=== PATIENT | female | born 1980 | race Caucasian/White ===

== ENCOUNTER 2016-11-17 11:10 | Outpatient (CLI) | payer MEDICAID ==
[~2016-11-17] VITALS: Ht 149.9 cm; Wt 61.1 kg
[~2016-11-17 11:10] MED LIST: PRENAT PO
[2016-11-17 12:35] VITALS: Ht 149.9 cm; Wt 61.1 kg
[2016-11-17 12:36] VITALS: BP 116/71; PULSE 71
--- NOTE | 2016-11-17 14:38 | TRIAGE ---
OB Triage Datetime Report Generated by CPN: 11/17/2016 14:38 Datetime: 11/17/2016 14:28 Labor Evaluation Frequency: 5-13 Monitor Mode: External Duration (sec)2399: 60-80 Quality: Mild Resting Tone [place]: Relaxed Heart Rate FHR Baseline Rate: 130 Monitor Mode: External US Variability: Moderate 6-25 bpm Decelerations: None Pain Assessment Pain Scale: 0 Pain Presence: None/Denies Pain Type: N/A Datetime: 11/17/2016 14:17 Stage of : OB Triage Datetime: 11/17/2016 14:09 Labor Evaluation Frequency: 13-25 Monitor Mode: External Duration (sec)2399: 70-90 Quality: Mild Resting Tone [place]: Relaxed Heart Rate FHR Baseline Rate: 130 Monitor Mode: External US Variability: Minimal - Undetectable to <=5 bpm (Annotations: MODERATE UNTIL 1358) Accelerations: 15X15 Decelerations: None Datetime: 11/17/2016 13:43 Monitor Mode: External US Datetime: 11/17/2016 13:31 Stage of : OB Triage Labor Evaluation Frequency: 14-25 (Annotations: SINCE 1134 PT HAS HAD 4 UCS) Monitor Mode: External Duration (sec)2399: 60-70 Quality: Mild Pattern: NOT AN ACTIVE LABOR PATTERN Resting Tone [place]: Relaxed Contraction Comments: SOME 15-20 SEC UTERINE IRRITABILITY NOTED Heart Rate FHR Baseline Rate: 135 Monitor Mode: External US Variability: Moderate 6-25 bpm Accelerations: 15X15 Decelerations: None Comments: ACCELS TO 145-155 FOLLOWED BY 15-20 SEC PERIODS OF FHR 120-125 NOT IN RELATION TO UCS Pain Assessment Pain Scale: 0 Pain Presence: None/Denies Pain Type: N/A Vaginal Exam Membrane Status: Intact Datetime: 11/17/2016 12:54 Pattern: Normal: <= 5 Contractions in 10 Minutes Monitor Mode: External US Comments: u/s adjusted Datetime: 11/17/2016 12:23 Stage of : OB Triage Assessment Type: Ongoing Assessment Labor Evaluation Frequency: X 2 SINCE 1134 Monitor Mode: External Duration (sec)2399: 60-70 Quality: Mild Pattern: NOT AN ACTIVE LABOR PATTERN Resting Tone [place]: Relaxed Contraction Comments: DENIES FEELING UCS Heart Rate FHR Baseline Rate: 135 Monitor Mode: External US Variability: Moderate 6-25 bpm Accelerations: 15X15 Decelerations: None Pain Assessment Pain Scale: 0 Pain Presence: None/Denies Pain Type: N/A Datetime: 11/17/2016 11:59 Stage of : OB Triage Assessment Type: Ongoing Assessment Heart Rate FHR Baseline Rate: 135 Monitor Mode: External US Variability: Moderate 6-25 bpm Decelerations: None Category: Category I Pain Assessment Pain Scale: 0 Pain Presence: None/Denies Pain Type: N/A Pain Goal: 3 Vaginal Exam Membrane Status: Intact Vaginal Bleeding: None Presentation 'A': Cephalic (Annotations: BY US TODAY) Lie 'A': Longitudinal Datetime: 11/17/2016 11:58 Assessment Type: Triage Maternal Assessment Level of Consciousness: Fully Conscious DTR's/Clonus: DTRs 2+; No Clonus Headache: Denies Blurred Vision: No Respiratory Effort: Unlabored; Regular Rhythm; Equal Expansion Breath Sounds, Left: Clear and Equal Breath Sounds, Right: Clear and Equal Nausea/Vomiting: Denies RUQ Epigastric Pain: Denies Lower Extremities Edema: None Degree: None Upper Extremities Edema: None Degree: None Facial Edema: None Fall Risk Assessment History of Falling: (0) No Secondary Diagnosis: (0) No Ambulatory Aid: (0) Bedrest/Nurse Assist IV Therapy: (0) No Gait: (0) Normal/Bedrest/Immobile Mental Status: (0) Oriented to Own Ability Fall Score: 0 Fall Risk Score Definition: No Risk: No action required Datetime: 11/17/2016 11:34 Stage of : OB Triage Time of Arrival: 11/17/2016 11:34 EGA: 39.1 Arrived By: Ambulatory Arrived From: Other Unit in Hospital Chief Complaint: PT SENT FROM NST FOR TRIAGE/CONTINUED MONITORING;PER NST RN PT HAD A LATE DECEL I N TRIAGE, DR LOCKHART REVIEWD THE STIP _ WANTED PT SENT TO [facility] FOR ADDITIONAL ASSESSMENT Movement: Present Contractions: Denies/Absent Rupture of Membranes: Denies Vaginal Bleeding: None Vaginal Discharge: Denies Recent Sexual Intercouse: Denies Abdominal Trauma: Not Applicable Patient Complaints: None Additional Patient Complaints: HX A1DM WITH THIS , DIET CONTROL (PER SUGARS ARE REASONABLY CONTROLLED). EDE 12.7CM/VERTEX/GRADE IIANTERIOR PLACENTA BY US DONE AT [facility] Time Provider Notified: 11/17/2016 13:30 Provider Notified: Vidya Initial Plan: MONITOR FHTS. FURTHER SURVIELLANCE. dr carranza cell called at 1230-mesage left to have dr calderon l/d/triage for further orders Maternal Assessment Level of Consciousness: Fully Conscious Temperature Route: Oral Labor Evaluation Frequency: PT DENIES UCS Monitor Mode: External Heart Rate FHR Baseline Rate: 132 Monitor Mode: External US Comments: PT FROM NST Pain Assessment Pain Scale: 0 Pain Presence: None/Denies Pain Type: N/A Pain Goal: 3 Vaginal Exam Membrane Status: Intact Datetime: 09/02/2016 19:04 Stage of : OB Triage Maternal Assessment Level of Consciousness: Fully Conscious DTR's/Clonus: DTRs 1+ Headache: Denies Nausea/Vomiting: Denies RUQ Epigastric Pain: Denies Labor Evaluation Frequency: NONE Monitor Mode: External Resting Tone [place]: Relaxed Heart Rate FHR Baseline Rate: 145 Monitor Mode: External US Variability: Moderate 6-25 bpm Accelerations: 10X10 Decelerations: None Pain Assessment Pain Scale: 0 Pain Presence: None/Denies Pain Type: N/A Pain Goal: 3 Vaginal Exam Membrane Status: Intact Datetime: 09/02/2016 17:59 Stage of : OB Triage Maternal Assessment Level of Consciousness: Fully Conscious DTR's/Clonus: DTRs 1+ Headache: Denies Nausea/Vomiting: Denies RUQ Epigastric Pain: Denies Labor Evaluation Frequency: NONE Monitor Mode: External Resting Tone [place]: Relaxed Heart Rate FHR Baseline Rate: 145 Monitor Mode: External US Variability: Moderate 6-25 bpm Accelerations: 10X10 Decelerations: None Pain Assessment Pain Scale: 0 Pain Presence: None/Denies Pain Type: N/A Pain Goal: 3 Vaginal Exam Membrane Status: Intact Datetime: 09/02/2016 17:05 Maternal Assessment Level of Consciousness: Fully Conscious DTR's/Clonus: DTRs 1+ Headache: Denies Blurred Vision: No Nausea/Vomiting: Denies RUQ Epigastric Pain: Denies Facial Edema: None Labor Evaluation Frequency: NONE Monitor Mode: External Resting Tone [place]: Relaxed Heart Rate FHR Baseline Rate: 145 Monitor Mode: External US Variability: Moderate 6-25 bpm Accelerations: 10X10 Decelerations: None Category: Category I Pain Assessment Pain Scale: 0 Pain Presence: None/Denies Pain Type: N/A Pain Goal: 3 Vaginal Exam Membrane Status: Intact Datetime: 09/02/2016 16:46 Stage of : OB Triage Maternal Assessment Level of Consciousness: Fully Conscious DTR's/Clonus: DTRs 2+; No Clonus Headache: Denies Blurred Vision: No Respiratory Effort: Unlabored; Regular Rhythm; Equal Expansion Breath Sounds, Left: Clear and Equal Breath Sounds, Right: Clear and Equal Nausea/Vomiting: Denies RUQ Epigastric Pain: Denies Lower Extremities Edema: None Degree: None Upper Extremities Edema: None Degree: None Facial Edema: None Temperature Route: Axillary Fall Risk Assessment History of Falling: (0) No Secondary Diagnosis: (0) No Ambulatory Aid: (0) Bedrest/Nurse Assist IV Therapy: (0) No Gait: (0) Normal/Bedrest/Immobile Mental Status: (0) Oriented to Own Ability Fall Score: 0 Fall Risk Score Definition: No Risk: No action required Datetime: 09/02/2016 16:45 EGA: 28.2 Datetime: 09/02/2016 16:36 Time of Arrival: 09/02/2016 16:36 Arrived By: Ambulatory Arrived From: Office Chief Complaint: PT CAME IN C/O PELVIC PRESSURE SINCE THIS AFTERNOON Movement: Present Contractions: Denies/Absent Rupture of Membranes: Denies Vaginal Discharge: Denies Recent Sexual Intercouse: Denies Abdominal Trauma: Not Applicable Patient Complaints: Other Additional Patient Complaints: NONE Time Provider Notified: 09/02/2016 17:00 Provider Notified: VIDYA Initial Plan: MONITOR AND UA
--- NOTE | 2016-11-17 15:14 | PN ---
DATE: 11/17/2016 The patient is a 36-year-old A1 GDM at 39 weeks. The patient was admitted for Dr. Tomasz claudio for induction. The patient ordered repeated ____. The risks and benefits discussed with the inte rpreter with Dr. Quintana and Dr. Hilliard. The patient to come back tomorrow for repeated ____. Dictated By: TWIN MORENO MD /DIANNA Conf#: [id number] DID#: [id number]
== END 2016-11-17 14:58 | disposition left against medical advice (07) ==
LOC: OBT 11:10 → L-D 11:10 → OBT 11:40 → UNDOADMIN 11:41 → L-D 11:41 → OBT 14:58
PROVIDERS: ATTEND Obstetrics & Gynecology
DX: O24.410 Gestational diabetes mellitus in pregnancy, diet controlled (principal); Z3A.39 39 weeks gestation of pregnancy
CPT/HCPCS: G0463

== ENCOUNTER 2016-11-26 00:25 | Outpatient (CLI) | payer MEDICAID ==
[~2016-11-26] VITALS: Ht 144.8 cm; Wt 61.1 kg
--- NOTE | 2016-11-26 00:27 | NSTRPT ---
NST Information Datetime Report Generated by CPN: 11/26/2016 00:27 Datetime: 11/17/2016 08:40 NST Information EGA: 39.1 Test Number: 7 Time on Monitor: 11/17/2016 07:57 Time off Monitor: 11/17/2016 10:34 NST Duration (Min): 157 Reason for NST: Diabetes Mellitus; Other Reason for NST Other: A1DM Test and Monitor Explained: Monitor Explained; Test Explained; Verbalized Understanding Pulse: 66 Resp: 18 SBP: 102 DBP: 59 Test Evaluation NST Interventions: Reposition Patient Patient States Movement: Present Contraction Frequency: OCCASIONAL FHR Baseline : 130 Variability: Moderate 6-25bpm Accelerations: 15X15 Decelerations: Late FHR Category: Category II NST Results: Questionable Comments: To u/s, EDE 12.7, Cephalic 1030-Dr Rizvi reviewed NST, recommends delivery. 1039-Report to Dr Quintana, order to send pt to [facility] for eval. POC explained to pt, pt states wants talk to and is unsure. Explaination of l ate decel to pt will go to hosp after discussion with spouse. 1050-Pt to triage, accomp by Laina Child nU/S, follow up NST for 11/20 given. Electronically Signed By E-Signature: with User ID: [id number] Datetime: 11/05/2016 14:03 NST Information EGA: 37.3 NST Duration (Min): 28 Datetime: 10/31/2016 08:45 NST Information EGA: 36.5 NST Duration (Min): 31 Datetime: 10/24/2016 09:02 NST Information EGA: 35.5 NST Duration (Min): 20 Datetime: 10/16/2016 08:51 NST Information EGA: 34.4 NST Duration (Min): 38 Datetime: 10/06/2016 10:10 NST Information EGA: 33.1 NST Duration (Min): 28 Datetime: 09/29/2016 09:41 NST Information EGA: 32.1 NST Duration (Min): 20
[2016-11-26 00:42] VITALS: Ht 144.8 cm; Wt 61.1 kg
[2016-11-26 00:43] VITALS: BP 142/68; PULSE 68; RESP 18
--- NOTE | 2016-11-26 02:30 | HP ---
Date/Time of Note Date/Time of Note DATE: 11/26/16 TIME: 02:26 OB - History Hx of Present Free Text/Dictation OB Triage Pt is a 36yo at 40+3 with GDMA1 presenting with c/o painful UCs since 1720 yesterday evening approximately [id number]. Pt states now UCs have become less painful. Reports normal FM, denies LOF, VB, headache, visual changes or RUQ pain. PROCEDURE: Ultrasound . CLINICAL INDICATION: . Contractions. TECHNIQUE: Ultrasound examination (see for evaluation of biophysical profile score. COMPARISON: Ultrasound examination of dated 11/17/2016. FINDINGS: breathing is appropriate for a score of 2; motion is appropriate for a score of 2; tone is appropriate for a score of 2; and amniotic fluid index is appropriate for a score of 2. Biophysical profile of 04/14. EDE is 7.1 cm. Heart rate is detected at 140 2 beats per minute. presentation is cephalic. Placenta is anterior grade 2 or grade 3. IMPRESSION: Biophysical profile score of 04/14. Estimated Due Date: Nov 23, 2016 : 3 Para: 2 Obstetrical Complications: Gestational Diabetes (A1) Past Family/Social History * Past Medical, Surgical, Family and Obstetric Histories reviewed from chart. Blood Type: O+ Rubella: immune RPR/VDRL: Negative GBS Status: Negative HBsAG: Negative OB Admission Exam Vital Signs Vital Signs Vital Signs Date Time Temp Pulse Resp B/P Pulse Ox O2 Delivery O2 Flow Rate FiO2 11/26/16 00:43 98.0 68 18 142/68 BPs 128/63, 136/65, 112/65, 134/77 Physical Exam Cervical Dilatation: 3cm Effacement: 50% Station: -2 Membranes: Intact Heart Rate: 140's Accelerations: Accelerations Present Decelerations: No Decelerations Varibility: Moderate Contractions on Admission: 6-10 Minutes Apart OB Assessment/Plan Other Assessment: Early labor at term GDMA1 Low normal EDE Other plan: IOL recommended given GA >40+0 with low normal EDE and GDMA1, however pt declines in favor of awaiting spontaneous labor. NST reactive, BPP wnl. Has appointment this AM at 10:30 with primary OB, Dr. Quintana. Pt advised to keep OB appointment. Recommended pt return to OB triage after clinic appointment for repeat NST/EDE if unwilling to stay for induction at that time. Advised PO hydration in the meantime. Strict FKC, Labor and ROM precautions reviewed. Questions answered to patient and her 's satisfaction. ANUPAMA CLOUD MD Nov 26, 2016 02:30
--- NOTE | 2016-11-26 02:44 | RADRPT ---
PROCEDURE: Ultrasound . CLINICAL INDICATION: . Contractions. TECHNIQUE: Ultrasound examination (see for evaluation of biophysical profile score. COMPARISON: Ultrasound examination of dated 11/17/2016. FINDINGS: breathing is appropriate for a score of 2; motion is appropriate for a score of 2; tone is appropriate for a score of 2; and amniotic fluid index is appropriate for a score of 2. Bi ophysical profile of 04/14. EDE is 7.1 cm. Heart rate is detected at 140 2 beats per minute. presentation is cephalic. Placenta is ante rior grade 2 or grade 3. IMPRESSION: Biophysical profile score of 04/14. RPTAT: [facility]U Physician Elina Date Time Electronically viewed and signed by Physician Elina on 11/26/2016 02:44 RS/
--- NOTE | 2016-11-26 03:57 | TRIAGE ---
OB Triage Datetime Report Generated by CPN: 11/26/2016 03:57 Datetime: 11/26/2016 03:30 Stage of : OB Triage Datetime: 11/26/2016 02:10 Stage of : OB Triage Labor Evaluation Frequency: 3-9 Monitor Mode: External Duration (sec)2399: 60-160 Quality: Mild Pattern: Normal: <= 5 Contractions in 10 Minutes Resting Tone [place]: Relaxed Heart Rate FHR Baseline Rate: 135 Monitor Mode: External US Variability: Moderate 6-25 bpm Accelerations: 15X15 Decelerations: None Category: Category I Pain Presence: None/Denies Datetime: 11/26/2016 01:15 Stage of : OB Triage Temperature Route: Oral Labor Evaluation Frequency: 7-9 Monitor Mode: External Duration (sec)2399: 90-130 Quality: Mild Pattern: Normal: <= 5 Contractions in 10 Minutes Resting Tone [place]: Relaxed Heart Rate FHR Baseline Rate: 130 Monitor Mode: External US Variability: Moderate 6-25 bpm Accelerations: 15X15 Decelerations: None Category: Category I Pain Assessment Pain Scale: 5 Pain Presence: Intermittent Pain Type: Cramping Pain Location: Abdomen Pain Relief Measures: Comfort Measures Datetime: 11/26/2016 01:05 Vaginal Exam Dilatation (cms): 3.0 Effacement (%): 50 Station: -2 Exam By: AMILCAR Vaginal Bleeding: None Cervix, Consistency: Moderate Cervix, Position: Posterior Datetime: 11/26/2016 00:48 Assessment Type: Triage Maternal Assessment Level of Consciousness: Fully Conscious DTR's/Clonus: DTRs 2+; No Clonus Headache: Denies Blurred Vision: No Respiratory Effort: Unlabored; Regular Rhythm; Equal Expansion Breath Sounds, Left: Clear and Equal Breath Sounds, Right: Clear and Equal Nausea/Vomiting: Denies RUQ Epigastric Pain: Denies Lower Extremities Edema: None Upper Extremities Edema: None Facial Edema: None Fall Risk Assessment History of Falling: (0) No Secondary Diagnosis: (0) No Ambulatory Aid: (0) Bedrest/Nurse Assist IV Therapy: (0) No Gait: (0) Normal/Bedrest/Immobile Mental Status: (0) Oriented to Own Ability Fall Score: 0 Fall Risk Score Definition: No Risk: No action required Datetime: 11/26/2016 00:47 Time of Arrival: 11/26/2016 00:20 EGA: 40.3 Arrived By: Ambulatory Arrived From: Home Chief Complaint: CONTRACTIONS SINCE 1700 Movement: Present Contractions: Irregular Time Contractions Began: 11/25/2016 17:00 Contractions: Q 20-25 MIN Rupture of Membranes: Denies Vaginal Bleeding: None Vaginal Discharge: Denies Patient Complaints: None Time Provider Notified: 11/26/2016 01:35 Provider Notified: PEDRO LUIS Initial Plan: EFM, ASSESSMENT, CALL MD FOR ORDERS Datetime: 11/17/2016 11:58 Fall Score: 0 Fall Risk Score Definition: No Risk: No action required Datetime: 11/17/2016 11:34 EGA: 39.1 Additional Patient Complaints: HX A1DM WITH THIS , DIET CONTROL (PER SUGARS ARE REASONABLY CONTROLLED). EDE 12.7CM/VERTEX/GRADE II ANTERIOR PLACENTA BY US DONE AT [facility] Datetime: 09/02/2016 16:46 Fall Score: 0 Fall Risk Score Definition: No Risk: No action required Datetime: 09/02/2016 16:45 EGA: 28.2
[2016-11-27] MEDS ORDERED: IBUP-1542 PO (14:44)
== END 2016-11-26 03:33 | disposition home or self-care (01) ==
LOC: L-D 00:25 → OBT 00:25
PROVIDERS: ATTEND Obstetrics & Gynecology
DX: O62.8 Other abnormalities of forces of labor (principal); O24.419 Gestational diabetes mellitus in pregnancy, unspecified control; O09.523 Supervision of elderly multigravida, third trimester; Z3A.36 36 weeks gestation of pregnancy
CPT/HCPCS: 76818; 82962; G0463

== ENCOUNTER 2016-11-26 07:36 | Inpatient (IN) | payer MEDICAID ==
[~2016-11-26] VITALS: Ht 142.2 cm; Wt 60.3 kg
--- NOTE | 2016-11-26 08:11 | TRIAGE ---
OB Triage Datetime Report Generated by CPN: 11/26/2016 08:11 Datetime: 11/26/2016 08:09 Time of Arrival: 11/26/2016 07:30 EGA: 40.3 Arrived By: Ambulatory Arrived From: Home Chief Complaint: R/O SROM Movement: Present Rupture of Membranes: Unsure Vaginal Bleeding: None Vaginal Discharge: Denies Recent Sexual Intercouse: Denies Abdominal Trauma: Not Applicable Time Provider Notified: 11/26/2016 08:00 Provider Notified: DR. CLOUD Initial Plan: SVE, ROM PLUS Datetime: 11/26/2016 08:02 Dilatation (cms): 4.5
[2016-11-26 08:36] VITALS: Ht 142.2 cm; Wt 60.3 kg
[2016-11-26 08:38] VITALS: BP 124/72; PULSE 78; RESP 20
[2016-11-26] MEDS ORDERED: MISOPROSTOL 200 MCG TAB PR PRN ×2 (09:00→21:30)
[2016-11-26] MEDS ORDERED: LACTATED RINGER'S 1,000 ML IV PRN (09:00)
[2016-11-26] MEDS ORDERED: METHYLERGONOVINE 0.2 MG INJ IM PRN ×2 (09:00→21:30)
[2016-11-26] MEDS ORDERED: BUTORPHANOL 2 MG INJ IV PRN ×2 (09:00)
[2016-11-26] MEDS ORDERED: LIDOCAINE 1% (MPF) 30 ML INJ INJ PRN (09:00)
[2016-11-26] MEDS ORDERED: IBUPROFEN 600 MG TAB PO PRN (09:00)
[2016-11-26] MEDS ORDERED: OXYTOCIN 30 UNITS/LR 500 ML IV SCH ×2 (09:00→10:30)
[2016-11-26] MEDS ORDERED: ACETAMINOPHEN/CODEINE #3 TAB PO PRN ×3 (09:00→21:30)
[2016-11-26] MEDS ORDERED: CARBOPROST 250 MCG INJ IM PRN ×2 (09:00→21:30)
[2016-11-26] MEDS ORDERED: OXYTOCIN 30 UNITS/LR 500 ML IV PRN ×2 (09:00→21:30)
[2016-11-26] MEDS: LACTATED RINGER'S 1,000 ML IV SCH ×2 (09:20→16:11)
[2016-11-26 09:34] LABS: ADD SCAN DIFF NO
[2016-11-26 09:38] LABS: BASOPHILS % 0.3 % (0.0-2.0); EOSINOPHILS % 0.4 % (0.0-7.0); HEMATOCRIT 33.9 % (37.0-47.0); HEMOGLOBIN 11.4 g/dl (12.0-16.0); LYMPHOCYTES # 1.2 10^3/ul (0.8-2.9); LYMPHOCYTES % 16.9 % (15.0-51.0); MEAN CORPUSCULAR HEMOGLOBIN 28.6 pg (29.0-33.0); MEAN CORPUSCULAR HGB CONC 33.6 g/dl (32.0-37.0); MONOCYTE # 0.5 10^3/ul (0.3-0.9); MONOCYTES % 6.9 % (0.0-11.0); NEUTROPHIL # 5.1 10^3/ul (1.6-7.5); NEUTROPHILS % 74.6 % (39.0-77.0); PLATELET COUNT 260 10^3/UL (140-415); RED BLOOD COUNT 3.99 10^6/ul (4.20-5.40); RED CELL DISTRIBUTION WIDTH 13.9 % (11.5-14.5); WHITE BLOOD COUNT 6.8 10^3/ul (4.8-10.8)
[2016-11-26 09:50] LABS: INR 0.87; PARTIAL THROMBOPLASTIN TIME 25.2 Sec (25.0-35.0); PROTIME 11.8 Sec (12.2-14.2); PT RATIO 0.9
[2016-11-26] MEDS ORDERED: MINERAL OIL LIGHT 10 ML VIAL TOP ONE (14:30)
[2016-11-26] MEDS: OXYTOCIN 30 UNITS/LR 500 ML IV SCH ×2 (18:54→22:47)
--- NOTE | 2016-11-26 19:21 | HP ---
Date/Time of Note Date/Time of Note DATE: 11/26/16 TIME: 19:15 OB - History Hx of Present Free Text/Dictation admitted in labor at 40 weeks Last Menstrual Period: Feb 23, 2016 Estimated Due Date: Nov 23, 2016 : 3 Para: 2 Care: Good Care Ultrasounds: Normal mid trimester US Obstetrical Complications: Gestational Diabetes Past Family/Social History * Past Medical, Surgical, Family and Obstetric Histories reviewed from chart. Blood Type: O+ Rubella: immune RPR/VDRL: Negative GBS Status: Positive HBsAG: Negative OB Admission Exam Vital Signs Vital Signs Vital Signs Date Time Temp Pulse Resp B/P Pulse Ox O2 Delivery O2 Flow Rate FiO2 11/26/16 08:38 99.6 78 20 124/72 Room Air Physical Exam HEENT: WNL Heart: Rhythm Normal Lungs: Clear, Equal Abdomen: WNL Extremities: Normal Reflexes: Normal Cervical Dilatation: 4cm Effacement: 50% Station: -3 Membranes: Intact Heart Rate: 130's Accelerations: Accelerations Present Decelerations: No Decelerations Varibility: Marked Contractions on Admission: < 5 Minutes Apart Date/Time Contractions Began: 11/25/2016 Frequency of Contractions: q 4 Duration: >30 seconds Intensity: Mild Last 72 hourBlood Glucose Bedside Glucose - 72 Hours Test 11/26/16 10:55 11/26/16 13:04 11/26/16 15:21 Bedside Glucose 78mg/dL (70-220) 89mg/dL (70-220) 81mg/dL (70-220) Last 72 hours Lab Results CBC & BMP 11/26/16 09:15 OB Assessment/Plan Other Assessment: term gestation labor pains GDM Other plan: proceed with labor TAMIKO ELIAS MD Nov 26, 2016 19:21
--- NOTE | 2016-11-26 19:24 | LDN ---
Date/Time of Note Date/Time of Note DATE: 11/26/16 TIME: 19:21 Delivery Summary of a viable infant over intact perineum Weeks of Gestation 40 + weeks Placenta Delivered: Spontaneously, Intact & Complete Meconium: none Episiotomy: No Perineal laceration: 1 Laceration repair: superficial perineal laceration was repaired with 2 0 Chromic Anesthesia type: Local Estimated blood loss: 300 Sponge & Needle done & correct: Yes All needle counts correct: Yes Any foreign bodies felt in the: No Problems: Infant Delivery Information Sex Infant Sex: female Apgars 1 Minute: 9 5 Minute: 9 Suctioning Nose & mouth suctioned at chidi: Yes Delee suction performed: No Umbilical Cord Umbilical cord with: 3 Vessels Cord presentations: nuchal cord Nuchal cord present X: 1 Cord Blood was obtained: Yes Mother & Baby Disposition Disposition Mom & Baby to Maternity; Good: Yes (mother and baby were recovered in good condition ) Mom transferred to: Other (maternity ) Baby to NICU: No TAMIKO ELIAS MD Nov 26, 2016 19:24
[2016-11-26] MEDS: LACTATED RINGER'S 1,000 ML IV* SCH (21:10)
[2016-11-26] MEDS ORDERED: LANOLIN 7 GM TUBE TOP PRN (21:30)
[2016-11-26] MEDS ORDERED: ZOLPIDEM 5 MG TAB PO PRN (21:30)
[2016-11-26] MEDS ORDERED: DIBUCAINE 1% 30 GM OINT PR PRN (21:30)
[2016-11-26 21:40] VITALS: BP 141/70; PULSE 57; RESP 19
[2016-11-26 23:30] VITALS: BP 108/55; PULSE 62; RESP 18
[2016-11-26] MEDS: BENZOCAINE 20% 56 ML SPRAY TOP PRN (23:45)
[2016-11-26] MEDS: WITCH HAZEL/GLYCERIN PAD PR PRN (23:46)
[2016-11-26] MEDS: IBUPROFEN 600 MG TAB PO SCH (23:47)
[2016-11-27 04:15] VITALS: BP 116/56; PULSE 58; RESP 18
[2016-11-27] MEDS: LACTATED RINGER'S 1,000 ML IV* SCH (05:10)
[2016-11-27] MEDS: IBUPROFEN 600 MG TAB PO SCH ×3 (05:37→17:29)
[2016-11-27] MEDS: ACCU-CHEK XX SCH ×4 (07:30→20:05)
--- NOTE | 2016-11-27 07:44 | RADRPT ---
PROCEDURE: XR Chest. CLINICAL INDICATION: Positive PPD TECHNIQUE: PA and lateral views of the chest were obtained. COMPARISON: None. FINDINGS: No focal airspace opacification, pleural effusion or pneumothorax is seen. The cardiomediastinal si lhouette is within normal limits for size. The osseous structures are unremarkable. IMPRESSION: No radiographic evidence of acute cardiopulmonary disease. RPTAT: HH .Ashlyn Martinez MD, MD Date Time Electronically viewed and signed by .Ashlyn Martinez MD, on 11/27/2016 07:44 .G/
[2016-11-27 08:12] LABS: ADD SCAN DIFF NO
[2016-11-27 08:19] LABS: BASOPHILS % 0.2 % (0.0-2.0); EOSINOPHILS % 0.3 % (0.0-7.0); HEMATOCRIT 31.6 % (37.0-47.0); HEMOGLOBIN 10.4 g/dl (12.0-16.0); LYMPHOCYTES # 1.4 10^3/ul (0.8-2.9); LYMPHOCYTES % 11.6 % (15.0-51.0); MEAN CORPUSCULAR HGB CONC 32.9 g/dl (32.0-37.0); MEAN CORPUSCULAR VOLUME 85.2 fl (82.0-101.0); MEAN PLATELET VOLUME 9.2 fl (7.4-10.4); MONOCYTE # 0.8 10^3/ul (0.3-0.9); MONOCYTES % 6.7 % (0.0-11.0); NEUTROPHIL # 9.9 10^3/ul (1.6-7.5); NEUTROPHILS % 80.6 % (39.0-77.0); PLATELET COUNT 221 10^3/UL (140-415); RED BLOOD COUNT 3.71 10^6/ul (4.20-5.40); RED CELL DISTRIBUTION WIDTH 13.9 % (11.5-14.5); WHITE BLOOD COUNT 12.3 10^3/ul (4.8-10.8)
[2016-11-27 08:40] VITALS: BP 99/51; PULSE 60; RESP 17
[2016-11-27] MEDS: SENNA/DOCUSATE NA (8.6MG/50MG) TAB PO SCH ×2 (09:52→20:54)
[2016-11-27] MEDS: MAGNESIUM HYDROXIDE 30ML CUP PO SCH ×2 (09:52→20:54)
--- NOTE | 2016-11-27 13:34 | DS ---
Date/Time of Note Date/Time of Note home next day DATE: 11/27/16 TIME: 13:33 Obstetrical Discharge Record Final Diagnosis Final Diagnosis: Term delivered Other Final Diagnosis S/P vaginal delivery Vaginal Delivery Obstetrical Delivery: Spontaneous, Laceration, Repaired Complications Gestational Diabetes Augmentation: Yes Induction: No Condition on Discharge Physical Assessment Last Vitals: see nurses notes Voiding: Yes Bowel Movement: Yes Breast: Soft, non-tender, Filling Fundus: Firm Abdomen and Incision: soft bs + Episiotomy: NA Calf Tenderness: No Patient Condition: Good TAMIKO ELIAS MD Nov 27, 2016 13:34
[2016-11-27] MEDS ORDERED: IBUP-1542 PO (14:44)
--- NOTE | 2016-11-27 14:44 | PD.PPDC ---
[employer] Discharge Instruction Provider Information Physician Information 36 y/o female had vaginal delivery Diagnosis Final Diagnosis: S/P vaginal delivery Condition Patient Condition: Good Diet Diet: Special Diet Special Diet: 200 florin ADA Activity/Restrictions Activity: Normal Activity May Shower Restrictions: Nothing in the Vagina Return to Work or School: January 12, 2017 Follow-up Follow-up with Physician: 4, Week/Weeks (in clinic) Return to clinic for OB Instructions: Breast Tenderness Depression TAMIKO ELIAS MD Nov 27, 2016 14:43
[2016-11-27 16:07] VITALS: BP 108/55; PULSE 60; RESP 18
[2016-11-27] MEDS ORDERED: INFLUENZA VIRUS VACCINE 0.5 ML (DISPENSING) IM* ONE (18:00)
[2016-11-27 19:30] VITALS: BP 115/65; PULSE 75; RESP 20
[2016-11-28] MEDS: IBUPROFEN 600 MG TAB PO SCH ×3 (00:08→11:19)
[2016-11-28 03:38] VITALS: BP 110/54; PULSE 72; RESP 20
[2016-11-28] MEDS: ACCU-CHEK XX SCH ×2 (07:30→10:05)
[2016-11-28 07:39] LABS: ADD SCAN DIFF NO
[2016-11-28 07:46] LABS: BASOPHILS % 0.4 % (0.0-2.0); EOSINOPHILS # 0.2 10^3/ul (0.0-0.5); EOSINOPHILS % 1.7 % (0.0-7.0); HEMATOCRIT 31.7 % (37.0-47.0); HEMOGLOBIN 10.2 g/dl (12.0-16.0); LYMPHOCYTES # 1.7 10^3/ul (0.8-2.9); LYMPHOCYTES % 18.5 % (15.0-51.0); MEAN CORPUSCULAR HEMOGLOBIN 27.9 pg (29.0-33.0); MEAN CORPUSCULAR HGB CONC 32.2 g/dl (32.0-37.0); MEAN CORPUSCULAR VOLUME 86.6 fl (82.0-101.0); MEAN PLATELET VOLUME 9.5 fl (7.4-10.4); MONOCYTE # 0.5 10^3/ul (0.3-0.9); MONOCYTES % 5.6 % (0.0-11.0); NEUTROPHIL # 6.6 10^3/ul (1.6-7.5); NEUTROPHILS % 73.1 % (39.0-77.0); PLATELET COUNT 230 10^3/UL (140-415); RED BLOOD COUNT 3.66 10^6/ul (4.20-5.40); RED CELL DISTRIBUTION WIDTH 14.3 % (11.5-14.5)
[2016-11-28 07:50] VITALS: BP 111/59; PULSE 61; RESP 16
[2016-11-28] MEDS: SENNA/DOCUSATE NA (8.6MG/50MG) TAB PO SCH (08:51)
[2016-11-28] MEDS: MAGNESIUM HYDROXIDE 30ML CUP PO SCH (08:51)
[2016-11-28] MEDS: WITCH HAZEL/GLYCERIN PAD PR PRN (08:58)
[2016-11-28] MEDS: BENZOCAINE 20% 56 ML SPRAY TOP PRN (08:58)
[2016-11-28] MEDS ORDERED: VARICELLA VACCINE LIVE/PF 1,350 UNIT/0.5 ML ML SC* ONE (09:00)
[2016-11-28] MEDS ORDERED: MEASLES,MUMPS,RUBELLA VACCINE INJ SC* ONE (09:00)
[2016-11-28] MEDS ORDERED: DIPHTH/TET/ACEL PERTUSS (ADULT) 0.5 ML VIAL IM* ONE (09:00)
[2016-11-29] MEDS ORDERED: INFLUENZA VIRUS VACCINE 0.5 ML (DISPENSING) IM* ONE (09:00)
== END 2016-11-28 12:40 | disposition home or self-care (01) | DRG 775 ==
LOC: OBT 07:36 → L-D 07:37 → OBT 08:30 → L-D 08:32 → PP1 21:38
PROVIDERS: ADMIT Obstetrics & Gynecology; ATTEND Obstetrics & Gynecology
PROC: 10E0XZZ Delivery of Products of Conception, External Approach (ICD-10-PCS; principal; 2016-11-26)
PROC: 0HQ9XZZ Repair Perineum Skin, External Approach (ICD-10-PCS; 2016-11-26)
DX: O70.0 First degree perineal laceration during delivery (principal); O24.429 Gestational diabetes mellitus in childbirth, unspecified control; O48.0 Post-term pregnancy; O69.81X0 Labor and delivery complicated by cord around neck, without compression, not applicable or unspecified; Z3A.40 40 weeks gestation of pregnancy; Z37.0 Single live birth
CPT/HCPCS: 71020; 76818; 82962; 84112; 85025; 85610; 85730; 86592; 86900; 86901; 90686; 90715; 90716; G0463; J2590; J7120

== ENCOUNTER 2018-09-24 17:22 | Outpatient (CLI) | payer MEDICAID ==
[~2018-09-24] VITALS: Ht 139.7 cm; Wt 57.7 kg
[~2018-09-24 17:22] MED LIST changes: +IBUP-1542 PO
[2018-09-24 18:18] VITALS: BP 130/74; PULSE 67; RESP 20; Ht 139.7 cm; Wt 57.7 kg
--- NOTE | 2018-09-24 22:39 | TRIAGE ---
OB Triage Datetime Report Generated by CPN: 09/24/2018 22:39 Datetime: 09/24/2018 21:53 Comments: monitor off, pt changing out of hospital gown into own clothes to be discharged home Datetime: 09/24/2018 21:52 Labor Evaluation Frequency: 5-8 Monitor Mode: External Duration (sec)2399: 80-100 Quality: Mild Pattern: Normal: <= 5 Contractions in 10 Minutes Resting Tone [place]: Relaxed Heart Rate FHR Baseline Rate: 145 Monitor Mode: External US Variability: Moderate 6-25 bpm Accelerations: 15X15 Decelerations: None Category: Category I Datetime: 09/24/2018 21:47 Vaginal Exam Dilatation (cms): 1.0 Effacement (%): 50 Station: -2 Exam By: AMALIA RN Datetime: 09/24/2018 21:31 Pain Assessment Pain Scale: 5 Pain Presence: Intermittent Pain Type: Contraction Pain Location: Abdomen Pain Relief Measures: Comfort Measures Pain Assessment Comments: pt states pain just increased very slightly but still tolerable and decli ne need for medication Datetime: 09/24/2018 21:29 Monitor Mode: External Monitor Mode: External US Datetime: 09/24/2018 20:25 Comments: monitors off, pt ambulating hallway on unit. Datetime: 09/24/2018 20:24 Comments: maternal movement, monitor loss of contact Datetime: 09/24/2018 20:23 Labor Evaluation Frequency: 4-10 Monitor Mode: External Duration (sec)2399: 50-110 Quality: Mild Pattern: Normal: <= 5 Contractions in 10 Minutes Resting Tone [place]: Relaxed Heart Rate FHR Baseline Rate: 140 Monitor Mode: External US Variability: Moderate 6-25 bpm Accelerations: 15X15 Decelerations: None Category: Category I Pain Assessment Pain Scale: 4 Pain Presence: Intermittent Pain Type: Contraction Pain Location: Abdomen Pain Relief Measures: Comfort Measures Datetime: 09/24/2018 19:55 Comments: monitors off, refractory technician at bedside for ultrasound results Datetime: 09/24/2018 19:54 Bedside Blood Glucose: 93 Datetime: 09/24/2018 19:41 Labor Evaluation Frequency: 5-10 Monitor Mode: External Duration (sec)2399: 60-100 Quality: Mild Pattern: Normal: <= 5 Contractions in 10 Minutes Resting Tone [place]: Relaxed Heart Rate FHR Baseline Rate: 140 Monitor Mode: External US Variability: Moderate 6-25 bpm Accelerations: 15X15 Decelerations: None Category: Category I Pain Assessment Pain Scale: 4 Pain Presence: Intermittent Pain Type: Contraction Pain Location: Abdomen Pain Relief Measures: Comfort Measures Datetime: 09/24/2018 19:21 Vaginal Exam Dilatation (cms): 1.0 Effacement (%): 50 Station: -2 Membrane Status: Intact Vaginal Bleeding: Normal Show Cervix, Consistency: Moderate Cervix, Position: Midposition Presentation 'A': Cephalic Datetime: 09/24/2018 19:19 Pain Assessment Pain Scale: 4 Pain Presence: Intermittent Pain Type: Contraction Pain Location: Abdomen Pain Relief Measures: Comfort Measures Datetime: 09/24/2018 18:40 Labor Evaluation Frequency: 6-7 Monitor Mode: External Duration (sec)2399: 60-90 Quality: Strong Pattern: Normal: <= 5 Contractions in 10 Minutes Resting Tone [place]: Relaxed Heart Rate FHR Baseline Rate: 140 Monitor Mode: External US FHR Baseline Changes: No Baseline Change Variability: Moderate 6-25 bpm Accelerations: 15X15 Decelerations: None Category: Category I Pain Assessment Pain Scale: 4 Pain Presence: Intermittent Pain Type: Contraction Pain Location: Abdomen; Back Pain Goal: 2 Datetime: 09/24/2018 18:09 Stage of : OB Triage Assessment Type: Triage Time of Arrival: 09/24/2018 17:18 EGA: 37.3 Arrived By: Wheelchair Arrived From: Home Chief Complaint: UC'S since around 0500 Movement: Present Contractions: Irregular Time Contractions Began: 09/24/2018 05:00 Rupture of Membranes: Denies Vaginal Bleeding: Normal Show Vaginal Discharge: Present Recent Sexual Intercouse: Denies Abdominal Trauma: Not Applicable Patient Complaints: Contractions Time Provider Notified: 09/24/2018 19:42 Provider Notified: Initial Plan: EFM, VS, SVE; BPP w/EDE, EFW; ambulate Maternal Assessment Level of Consciousness: Fully Conscious DTR's/Clonus: DTRs 2+; No Clonus Headache: Denies Blurred Vision: No Respiratory Effort: Unlabored; Regular Rhythm; Equal Expansion Nausea/Vomiting: Denies RUQ Epigastric Pain: Denies Lower Extremities Edema: None Degree: None Upper Extremities Edema: None Degree: None Facial Edema: None Temperature Route: Axillary Fall Risk Assessment History of Falling: (0) No Secondary Diagnosis: (0) No Ambulatory Aid: (0) Bedrest/Nurse Assist IV Therapy: (0) No Gait: (0) Normal/Bedrest/Immobile Mental Status: (0) Oriented to Own Ability Fall Score: 0 Fall Risk Score Definition: No Risk: No action required Datetime: 09/16/2018 09:35 Membrane Status: Intact
--- NOTE | 2018-09-25 02:18 | PN ---
Triage Information Date/Time 09/24/2018 at 2200 Reason for visit: Abd/pelvic pain Weeks of Gestation 37 weeks and 3 days /Para Diabetes: gestational Diabetes management: diet controlled Hypertention: none Additional information 38 years old at 37 weeks and 3 days with a ROSALINA of 10/11/2018 complaining o f uterine contractions. She states good movement. She denies nausea, vomiting, shortness of breath, chest pain, headache, visual changes, vaginal bleeding or LOF. Objective Vital Signs Date Temp Pulse Resp B/P (MAP) Pulse Ox O2 O2 Flow FiO2 Time Delivery Rate 09/24/18 98.4 67 20 130/74 Room Air 18:18 (92) Heart Rate: 140's Contractions: 6-10 Minutes Apart Results/Medications Results 24 hrs Laboratory Tests Test 09/24/18 11:00 09/24/18 19:54 Urine Color COLORLESS Urine Clarity CLEAR Urine pH 7.0 Urine Specific [place] 1.002 L Urine Ketones NEGATIVE Urine Nitrite NEGATIVE Urine Bilirubin NEGATIVE Urine Urobilinogen NEGATIVE Urine Leukocyte Esterase NEGATIVE Urine Microscopic RBC 0 Urine Microscopic WBC 0 Urine Bacteria FEW A Urine Hemoglobin 1+ H Urine Glucose NEGATIVE Urine Total Protein NEGATIVE Bedside Glucose 83 Disposition: Discharge Assessment/Plan Indication urodynamic currently at 38 years old at 37 weeks and 3 days presented to triage with complaint of uterine contractions. heart rate category 1. Vaginal exam was 1/50/-2/cephalic/intact. Ultrasound performed, biophysical profile 8 out of 8 and normal EDE. She walks for 2 hours, no cervical changes noted. Sign and symptom of labor, preeclampsia, kick count discussed in detail with patient. She expressed understanding all of her questions answered. She discharged home in stable condition with follow-up with her primary OB in 2-3 days. I strongly recommend come back to triage if has regular uterine contractions. PATRICK HARRISON Sep 25, 2018 02:18
== END 2018-09-24 22:10 | disposition home or self-care (01) ==
LOC: OBT 17:22 → L-D 17:23 → OBT 22:10
PROVIDERS: ATTEND Obstetrics & Gynecology
DX: O26.893 Other specified pregnancy related conditions, third trimester (principal); Z3A.37 37 weeks gestation of pregnancy; R10.30 Lower abdominal pain, unspecified
CPT/HCPCS: 76815; 76818; 81001; 82962; G0463

== ENCOUNTER 2018-09-26 15:08 | Inpatient (IN) | payer MEDICAID ==
[~2018-09-26] VITALS: Ht 142.2 cm; Wt 57.7 kg
[2018-09-26 15:25] VITALS: BP 138/73; PULSE 67; RESP 18; Ht 142.2 cm; Wt 57.7 kg
[2018-09-26] MEDS ORDERED: BUTORPHANOL 2 MG INJ IV PRN (16:30)
[2018-09-26] MEDS ORDERED: METHYLERGONOVINE 0.2 MG INJ IM PRN (16:30)
[2018-09-26] MEDS ORDERED: MISOPROSTOL 200 MCG TAB PR PRN (16:30)
[2018-09-26] MEDS ORDERED: OXYTOCIN 30 UNITS/LR 500 ML IV PRN (16:30)
[2018-09-26] MEDS ORDERED: DEXTROSE 5%-LR 1,000 ML IV PRN (16:30)
[2018-09-26] MEDS ORDERED: CARBOPROST 250 MCG INJ IM PRN (16:30)
[2018-09-26] MEDS ORDERED: IBUPROFEN 600 MG TAB PO PRN (16:30)
[2018-09-26] MEDS ORDERED: OXYTOCIN 30 UNITS/LR 500 ML IV SCH ×2 (16:30)
[2018-09-26] MEDS ORDERED: LIDOCAINE 1% (MPF) 30 ML INJ INJ PRN (16:30)
--- NOTE | 2018-09-26 16:30 | HP ---
Date/Time of Note Date/Time of Note DATE: 09/26/18 TIME: 16:29 OB - History Hx of Present Free Text/Dictation @38+wks GA in labor : 4 Para: 3 Care: Good Care Ultrasounds: Normal mid trimester US Obstetrical Complications: Gestational Diabetes Medical Complications: None Past Family/Social History * Past Medical, Surgical, Family and Obstetric Histories reviewed from chart. OB Admission Exam Vital Signs Vital Signs Vital Signs Date Temp Pulse Resp B/P (MAP) Pulse Ox O2 O2 Flow FiO2 Time Delivery Rate 09/26/18 98.1 67 18 138/73 Room Air 15:25 (94) Physical Exam Abdomen: WNL Extremities: Normal Cervical Dilatation: 4cm Effacement: 75% Station: -1 Membranes: Intact Heart Rate: 140's Accelerations: Accelerations Present Decelerations: No Decelerations Varibility: Moderate Contractions on Admission: 6-10 Minutes Apart OB Assessment/Plan Reason for admission: observation Plan: Expectant Management JAMES SCHAEFER M.D. Sep 26, 2018 16:30
--- NOTE | 2018-09-26 16:45 | TRIAGE ---
OB Triage Datetime Report Generated by CPN: 09/26/2018 16:45 Datetime: 09/26/2018 16:16 Dilatation (cms): 4.0 Effacement (%): 90 Station: -2 Exam By: IRMA Membrane Status: Bulging Vaginal Bleeding: Scant Cervix, Consistency: Soft Cervix, Position: Midposition Presentation 'A': Cephalic Datetime: 09/26/2018 15:47 Time of Arrival: 09/26/2018 15:04 EGA: 37.5 Arrived By: Ambulatory Arrived From: Home Chief Complaint: UCS Q20 MIN AND SPOTTING Movement: Present Contractions: Denies/Absent Vaginal Bleeding: None Vaginal Discharge: Denies Recent Sexual Intercouse: Denies Patient Complaints: Contractions Time Provider Notified: 09/26/2018 15:35 Provider Notified: HADADIAN Datetime: 09/26/2018 15:31 Assessment Type: Triage Level of Consciousness: Fully Conscious DTR's/Clonus: DTRs 2+; No Clonus Headache: Denies Blurred Vision: No Respiratory Effort: Unlabored; Regular Rhythm; Equal Expansion Nausea/Vomiting: Denies RUQ Epigastric Pain: Denies Lower Extremities Edema: None Degree: None Upper Extremities Edema: None Degree: None Facial Edema: None History of Falling: (0) No Secondary Diagnosis: (0) No Ambulatory Aid: (0) Bedrest/Nurse Assist IV Therapy: (0) No Gait: (0) Normal/Bedrest/Immobile Mental Status: (0) Oriented to Own Ability Fall Score: 0 Fall Risk Score Definition: No Risk: No action required
[2018-09-26] MEDS: LACTATED RINGER'S 1,000 ML IV SCH ×2 (17:18→19:52)
[2018-09-27] MEDS: LACTATED RINGER'S 1,000 ML IV SCH ×2 (03:59→16:06)
[2018-09-27] MEDS ORDERED: OXYTOCIN 30 UNITS/LR 500 ML IV SCH (17:35)
--- NOTE | 2018-09-27 19:37 | LDN ---
Date/Time of Note Date/Time of Note DATE: 09/27/18 TIME: 19:34 Delivery Summary 38 years old with single intrauterine at 38 weeks and 3 days delivered a viable male over intact perineum. Nose and mouth suctioned. There was nuchal cord x2. Rest of body delivered. Baby given to the nurse. Placenta delivered spontaneously and intact with three-vessel cord. Patient tolerated procedure well. Time of delivery 19:07 Weight 2905 g - 6 pound 6 ounces Height 18.5 inches 8 at 1 minutes and 9 at 5 minutes EBL 150 mL Weeks of Gestation 38 weeks and 3 days Placenta Delivered: Spontaneously Meconium: none Anesthesia type: None Estimated blood loss: 150 Sponge & Needle done & correct: Yes All needle counts correct: Yes Any foreign bodies felt in the: No Infant Delivery Information Sex Infant Sex: male Apgars 1 Minute: 8 5 Minute: 9 10 Minute: 10 Suctioning Nose & mouth suctioned at chidi: Yes Umbilical Cord Umbilical cord with: 3 Vessels Cord presentations: nuchal cord Nuchal cord present X: 2 Cord Blood was obtained: Yes Mother & Baby Disposition Disposition Mom & Baby to Maternity; Good: Yes PATRICK HARRISON Sep 27, 2018 19:37
[2018-09-27] MEDS: LACTATED RINGER'S 1,000 ML IV* SCH (20:17)
[2018-09-27] MEDS: DEXTROSE 5%-LR 1,000 ML IV SCH (20:17)
[2018-09-27] MEDS ORDERED: METHYLERGONOVINE 0.2 MG INJ IM PRN (20:30)
[2018-09-27] MEDS ORDERED: ONDANSETRON 4 MG INJ IV PRN (20:30)
[2018-09-27] MEDS ORDERED: CARBOPROST 250 MCG INJ IM PRN (20:30)
[2018-09-27] MEDS ORDERED: OXYCODONE/ASPIRIN (4.88/325) TAB PO PRN (20:30)
[2018-09-27] MEDS ORDERED: DIBUCAINE 1% 30 GM OINT TOP PRN (20:30)
[2018-09-27] MEDS ORDERED: ZOLPIDEM 5 MG TAB PO PRN (20:30)
[2018-09-27] MEDS ORDERED: OXYTOCIN 30 UNITS/LR 500 ML IV PRN (20:30)
[2018-09-27] MEDS ORDERED: WITCH HAZEL/GLYCERIN PAD PR PRN (20:30)
[2018-09-27] MEDS ORDERED: DIPHENHYDRAMINE 50 MG INJ IV PRN (20:30)
[2018-09-27] MEDS ORDERED: MISOPROSTOL 200 MCG TAB PR PRN (20:30)
[2018-09-27] MEDS ORDERED: LANOLIN HPA 1 PKT TOP PRN (20:30)
[2018-09-27] MEDS ORDERED: ACETAMINOPHEN 325 MG TAB PO PRN (20:30)
[2018-09-27] MEDS ORDERED: SENNA/DOCUSATE NA (8.6MG/50MG) TAB PO PRN (20:30)
[2018-09-27] MEDS ORDERED: BENZOCAINE 20% 56 ML SPRAY TOP PRN (20:30)
[2018-09-27 21:00] VITALS: BP 128/69; PULSE 61; RESP 18
[2018-09-28] VITALS: BP 124/62; PULSE 65; RESP 17
[2018-09-28] MEDS: IBUPROFEN 600 MG TAB PO SCH ×5 (01:28→23:53)
[2018-09-28] MEDS: DEXTROSE 5%-LR 1,000 ML IV SCH ×2 (02:57→12:17)
[2018-09-28 04:00] VITALS: BP 101/54; PULSE 67; RESP 17
[2018-09-28] MEDS: LACTATED RINGER'S 1,000 ML IV* SCH ×2 (04:17→12:17)
--- NOTE | 2018-09-28 05:49 | NUR ---
EOSS Patient in stable condition, bonding well with baby, voiding without difficulty, pain controlled by the medication, ambulating well ,afebrile.
[2018-09-28 09:00] VITALS: BP 133/81; PULSE 64; RESP 18
--- NOTE | 2018-09-28 15:54 | QN ---
Documentation Comment PPD#1is stable afebrile tolerates Diet No VB +BM +voids Vs stable Gen NAD Abd soft NT ND Genitalia No blood at perineum --->Ambulation JAMES SCHAEFER M.D. Sep 28, 2018 15:54
[2018-09-28 16:00] VITALS: BP 115/54; PULSE 66; RESP 18
--- NOTE | 2018-09-28 18:17 | NUR ---
E.O.S.S. PATIENT IS STABLE. LOCHIA IS SMALL, AMBULATING, BONDING WITH THE BABY, WELL. MOVING TOWARD OUTCOMES.
[2018-09-28 19:45] VITALS: BP 120/58; PULSE 62; RESP 18
[2018-09-29 03:26] VITALS: BP 115/55; PULSE 68; RESP 17
--- NOTE | 2018-09-29 04:11 | NUR ---
EOSS v/s stable , fundus firm & contracted, light lochia, voiding well, had bm per pt, her baby exclusively, for possible discharge today.
[2018-09-29] MEDS: IBUPROFEN 600 MG TAB PO SCH ×2 (05:37→11:30)
[2018-09-29 08:00] VITALS: BP 112/58; PULSE 61; RESP 17
[2018-09-29] MEDS ORDERED: MEASLES,MUMPS,RUBELLA VACCINE INJ SC* ONE (09:00)
[2018-09-29] MEDS ORDERED: DIPHTH/TET/ACEL PERTUSS (ADULT) 0.5 ML VIAL IM* ONE (09:00)
--- NOTE | 2018-09-29 09:57 | PN ---
Date/Time of Note Date/Time of Note DATE: 09/29/18 TIME: 09:54 OB Subjective Subjective Subjective PPD# 2 Patient is doing well. She denies nausea, vomiting, shortness of breath, chest pain, headache. She has been ambulating without difficulty, tolerating regular diet. Pain is well controlled on current medications OB Objective Objective Objective Vital Signs Date Temp Pulse Resp B/P (MAP) Pulse Ox O2 O2 Flow FiO2 Time Delivery Rate 09/29/18 97.7 61 17 112/58 Room Air 08:00 (76) General: AAO X 3, comfortable, NAD, appropriate mood and affect. ABD: +BS. Soft, non-tender. Uterus 2 cm below umbilicus Flank: No CVA tenderness (B/L) LE: Mild edema. No clubbing, cyanosis, thigh or calf tenderness (B/L). Homans 'sign is negative OB Assessment/Plan Other plan: 38 years old s/p normal vaginal delivery at 38 weeks and 3 days. PPD#2 - AF, VSS - Baby is doing well, at bed side. She is bonding well - Contraception methods with R/B/A/FR discussed - Continue care - Discharge home - Rx and instruction given - Follow up in 2 and 6 weeks at clinic PATRICK HARRISON Sep 29, 2018 09:57
--- NOTE | 2018-09-29 16:28 | DS ---
Date/Time of Note Date/Time of Note DATE: 09/29/18 TIME: 16:27 Obstetrical Discharge Record Final Diagnosis Final Diagnosis: Term delivered Other Final Diagnosis 38 years old s/p normal vaginal delivery at 38 weeks and 3 days. PPD#2. Ambulating and tolerating regular diet. She is voiding without difficulty. Pain is controlled on current medication. - AF, VSS - Baby is doing well, at bed side. She is bonding well - Contraception methods with R/B/A/FR discussed - Continue care - Discharge home - Rx and instruction given - Follow up in 2 and 6 weeks at clinic Vaginal Delivery Obstetrical Delivery: Spontaneous Condition on Discharge Physical Assessment Last Vitals: Vital Signs Date Temp Pulse Resp B/P (MAP) Pulse Ox O2 O2 Flow FiO2 Time Delivery Rate 09/29/18 97.7 61 17 112/58 Room Air 08:00 (76) Voiding: Yes Bowel Movement: Yes Breast: Soft, non-tender Fundus: Firm Calf Tenderness: No Patient Condition: Stable PATRICK HARRISON Sep 29, 2018 16:28
--- NOTE | 2018-09-29 17:38 | NUR ---
PATIENT WENT HOME STABLE WITH THE BABY. D/C INSTRUCTIONS GIVEN . VERBALIZED UNDERSTANDING.
== END 2018-09-29 17:45 | disposition home or self-care (01) | DRG 807 ==
LOC: OBT 15:08 → L-D 15:09 → OBT 16:20 → L-D 16:20 → PP1 09-27 20:50
PROVIDERS: ADMIT Obstetrics & Gynecology; ATTEND Obstetrics & Gynecology
PROC: 10E0XZZ Delivery of Products of Conception, External Approach (ICD-10-PCS; principal; 2018-09-27)
DX: O69.81X0 Labor and delivery complicated by cord around neck, without compression, not applicable or unspecified (principal); Z37.0 Single live birth; O24.429 Gestational diabetes mellitus in childbirth, unspecified control; Z3A.38 38 weeks gestation of pregnancy; Z23 Encounter for immunization
CPT/HCPCS: 76818; 80053; 80307; 81001; 82962; 84560; 85025; 85384; 85610; 85730; 86592; 86703; 86850; 86900; 86901; 87340; 90715; G0463; J2590; J7120; J7121